=== PATIENT | male | born 1990 | race Caucasian/White ===

== ENCOUNTER 2019-10-24 11:51 | Emergency (ER) | payer OTHER, SELFPAY ==
--- NOTE | 2019-10-24 11:57 | ED.GENADULT ---
HPI - General Adult General Chief complaint: Ear Stated complaint: right ear pain/pressure Time Seen by Provider: 10/24/19 12:06 Source: patient Mode of arrival: ambulatory Limitations: no limitations History of Present Illness HPI narrative: 29-year-old male patient presents to the [facility] with complaints of decreased hearing bilateral ears. Patient states he felt like his earwax was building up so he did try using some Debrox earwax drops [id number] yesterday. Patient states he felt like it made it worse. Patient denies any pain but states he feels like something is in his right ear. Related Data Allergies Allergy/AdvReac Type Severity Reaction Status Date / Time No Known Allergies Allergy Verified 10/24/19 12:17 Review of Systems Review of Systems: Narrative: CONSTITUTIONAL: Denies fever, chills, or sweats. EYES: Denies visual changes, redness, or discharge. ENT: Denies rhinorrhea, congestion, sore throat, or otalgia. Positive fullness and decreased hearing to bilateral ears CARDIOVASCULAR: Denies chest pain, palpitations, or edema. RESPIRATORY: Denies cough or dyspnea. GASTROINTESTINAL: Denies abdominal pain, nausea, vomiting, or diarrhea. GENITOURINARY: Denies dysuria or hematuria. SKIN: Denies rash or itching. MUSCULOSKELETAL: Denies back pain, joint pain, or myalgia. NEUROLOGIC: Denies headache, numbness, or weakness. PSYCHIATRIC: Denies anxiety or depression. PMFSH Comments At the time of my signature I agree with nursing past medical history, surgical, social, and family history. There is no relevant family history pertinent to the presenting complaint. Exam Narrative: Exam Narrative: GENERAL: Well-appearing, well-nourished, and in no acute distress. HEAD: Normocephalic, atraumatic. EYES: PERRLA and EOMI. ENT: Nares clear, no rhinorrhea or epistaxis. Mucous membranes moist. Patient does have some wax buildup to bilateral ears. Once the wax was removed it did show some excoriation, redness and swelling to bilateral canals. NECK: Supple. No lymphadenopathy CHEST: Clear to auscultation. No respiratory distress. HEART: Regular rate and rhythm. No murmur heard. Normal peripheral pulses. ABDOMEN: Soft, nontender, nondistended, normal active bowel sounds. EXTREMITIES: Normal range of motion. No edema. SKIN: Warm, dry, no rash. NEURO: No focal deficits. Alert and oriented x3. Course Vital Signs Vital signs: Vital Signs Temperature 37.1 C 10/24/19 12:00 Pulse Rate 75 10/24/19 12:00 Respiratory Rate 20 10/24/19 12:00 Blood Pressure 148/88 H 10/24/19 12:00 Pulse Oximetry 99 10/24/19 12:00 Temperature 37.1 C 10/24/19 12:00 Pulse Rate 75 10/24/19 12:00 Respiratory Rate 20 10/24/19 12:00 Blood Pressure 148/88 H 10/24/19 12:00 Pulse Oximetry 99 10/24/19 12:00 Vital signs reviewed. The patient has been informed that they may have pre-hypertension or Hypertension based on a BP reading in the department. I recommend that the patient call the primary care provider listed on their discharge instructions or a physician of their choice this week to arrange follow up for further evaluation of possible pre-hypertension or Hypertension Procedures Ear Wax Removal Both Ears: Ear Wax Removal Date: 10/24/19 Ear Wax Removal Time: 12:18 Cerumenolytic Used: other (Warm water with peroxide) Results: Re-examined: cerumen removed completely TM Examination: TM(s) erythematous Ear Canal Exam: other (Erythema and swelling with excoriation) Patient Tolerated Procedure: well Complications: no problems Technique: ear canal irrigated Additional Comments: The patient had cerumen removed from the L band R ear canal with warm water and peroxide irrigation and a loop in order to visualize the TM. The TM has no perforations post procedure. There was some erythema noted to bilateral ear canals with some swelling and excoriation. There were no
[2019-10-24 12:00] VITALS: BP 148/88; PULSE 75; RESP 20; TEMP 37.1; O2SAT 99
== END 2019-10-24 12:30 | disposition home or self-care (01) ==
PROVIDERS: Emergency Provider Nurse Practitioner Family; PCP Internal Medicine
DX: H61.23 Impacted cerumen, bilateral (principal)
CPT/HCPCS: 69210; 99203; G0463

== ENCOUNTER 2019-12-13 12:51 | Emergency (ER) | payer OTHER, SELFPAY ==
[2019-12-13 13:08] VITALS: BP 151/91; PULSE 80; RESP 20; TEMP 36.7; O2SAT 98
--- NOTE | 2019-12-13 13:08 | ED.GENADULT ---
HPI - General Adult General Chief complaint: Ear Stated complaint: Clogged ear Time Seen by Provider: 12/13/19 13:08 Source: patient Mode of arrival: ambulatory Limitations: no limitations History of Present Illness HPI narrative: 29-year-old male patient presents to the [facility] with complaints of left ear pain. Patient states he was seen back in October for similar complaints and states he was diagnosed with some swimmer's ear at the time he was given ofloxacin eardrops. Patient states he started using them and started feeling some relief from the pain however he states he completed the eardrops but the pain never actually went away. Patient states he has been off the eardrops now for about 3 weeks and continues to have worsening pain. Denies any drainage. Denies any fevers. Denies any sore throat, cough or runny nose. Related Data Home Medications Medication Instructions Recorded Confirmed clonazepam 0.5 mg PO BID 12/13/19 12/13/19 Allergies Allergy/AdvReac Type Severity Reaction Status Date / Time No Known Allergies Allergy Verified 12/13/19 13:10 Review of Systems Review of Systems: Narrative: CONSTITUTIONAL: Denies fever, chills, or sweats. EYES: Denies visual changes, redness, or discharge. ENT: Denies rhinorrhea, congestion, sore throat, positive left otalgia. CARDIOVASCULAR: Denies chest pain, palpitations, or edema. RESPIRATORY: Denies cough or dyspnea. GASTROINTESTINAL: Denies abdominal pain, nausea, vomiting, or diarrhea. GENITOURINARY: Denies dysuria or hematuria. SKIN: Denies rash or itching. MUSCULOSKELETAL: Denies back pain, joint pain, or myalgia. NEUROLOGIC: Denies headache, numbness, or weakness. PSYCHIATRIC: Denies anxiety or depression. PMFSH Comments At the time of my signature I agree with nursing past medical history, surgical, social, and family history. There is no relevant family history pertinent to the presenting complaint. Exam Narrative: Exam Narrative: GENERAL: Well-appearing, well-nourished, and in no acute distress. HEAD: Normocephalic, atraumatic. EYES: PERRLA and EOMI. ENT: Nares clear, no rhinorrhea or epistaxis. Mucous membranes moist. Left tympanic membrane with no erythema. Left ear canal does appear to be swollen and has some discharge noted as well as pain with manipulation of the outer ear. The right TM is clear with no erythema or foreign bodies again and no foreign bodies in the canal. Posterior pharynx with no erythema, tonsillectomy, exudates or lesions present. NECK: Supple. No lymphadenopathy CHEST: Clear to auscultation. No respiratory distress. HEART: Regular rate and rhythm. No murmur heard. Normal peripheral pulses. ABDOMEN: Soft, nontender, nondistended, normal active bowel sounds. EXTREMITIES: Normal range of motion. No edema. SKIN: Warm, dry, no rash. NEURO: No focal deficits. Alert and oriented x3. Course Vital Signs Vital signs: Vital Signs Temperature 36.7 C 12/13/19 13:08 Pulse Rate 80 12/13/19 13:08 Respiratory Rate 20 12/13/19 13:08 Blood Pressure 151/91 H 12/13/19 13:08 Pulse Oximetry 98 12/13/19 13:08 Temperature 36.7 C 12/13/19 13:08 Pulse Rate 80 12/13/19 13:08 Respiratory Rate 20 12/13/19 13:08 Blood Pressure 151/91 H 12/13/19 13:08 Pulse Oximetry 98 12/13/19 13:08 Vital signs reviewed. The patient has been informed that they may have pre-hypertension or Hypertension based on a BP reading in the department. I recommend that the patient call the primary care provider listed on their discharge instructions or a physician of their choice this week to arrange follow up for further evaluation of possible pre-hypertension or Hypertension Medical Decision Making Differential Diagnosis Differential Diagnosis: Differential diagnosis: Otitis media, otitis externa, perforated TM, infection of the outer ear, foreign body or cerumen impaction, ruptured TM, acute mastoiditis, ligament otitis externa, dehydration, pne
== END 2019-12-13 13:18 | disposition home or self-care (01) ==
PROVIDERS: Emergency Provider Nurse Practitioner Family; PCP Physician Assistant
DX: H60.502 Unspecified acute noninfective otitis externa, left ear (principal)
CPT/HCPCS: 99213; G0463

== ENCOUNTER 2020-09-21 15:23 | Emergency (ER) | payer OTHER, SELFPAY ==
[2020-09-21 15:27] VITALS: BP 158/87; PULSE 66; RESP 14; TEMP 36.6; O2SAT 99
--- NOTE | 2020-09-21 15:56 | ED.EAR ---
HPI - Ear Problem General Chief complaint: Ear Stated complaint: ears are clogged Source: patient, RN notes reviewed and old records reviewed Mode of arrival: ambulatory Limitations: no limitations History of Present Illness HPI Narrative: 30 year old male who presents to [facility] care with complaints of his ears feeling clogged especially his left ear with some discomfort to his left ear voiced. reports hearing is decreased. Patient states that he has been experiencing flaky discharge from his ear canals for the past 5 months. Patient denies any other ill symptoms, denies any nasal discharge, cough, sore throat or any headache pain, denies any dizziness. MD Complaint: ear pain (some discomfort to left ear.) and other (ears feel clogged bilaterally) Location: bilateral Duration: constant Severity: mild Relieving factors: nothing Associated symptoms ear: decreased hearing and other (flaky skin in ear canals) Treatment prior to arrival: none Related Data Home Medications Medication Instructions Recorded Confirmed clonazepam 1 mg PO TID 09/21/20 09/21/20 paroxetine HCl 60 mg PO QAM 09/21/20 09/21/20 risperidone 2 mg PO DAILY 09/21/20 09/21/20 Allergies Allergy/AdvReac Type Severity Reaction Status Date / Time No Known Allergies Allergy Verified 09/21/20 15:38 Review of Systems Review of Systems: Narrative: CONSTITUTIONAL: Denies fever, chills, or sweats. EYES: Denies visual changes, redness, or discharge. ENT: Denies rhinorrhea, congestion, sore throat, Positive for left otalgia, ear feeling clogged with decrease in hearing. CARDIOVASCULAR: Denies chest pain, palpitations, or edema. RESPIRATORY: Denies cough or dyspnea. GASTROINTESTINAL: Denies abdominal pain, nausea, vomiting, or diarrhea. GENITOURINARY: Denies dysuria or hematuria. SKIN: Denies rash or itching. MUSCULOSKELETAL: Denies back pain, joint pain, or myalgia. NEUROLOGIC: Denies headache, numbness, or weakness. PSYCHIATRIC: Positive history of anxiety or depression. All systems reviewed & are unremarkable except as noted in HPI and below PMFSH Past Medical History Medical History (Updated 09/25/20 @ 11:55 by Mireya Mccord NP) Anxiety and depression Hypertension OCD (obsessive compulsive disorder) Surgical History Surgical History (Updated 09/25/20 @ 11:47 by Mireya Mccord NP) History of appendectomy Hx of right knee surgery Family History Family History (Updated 09/25/20 @ 11:47 by Mireya Mccord NP) Other No significant family history Social History Social History (Updated 09/25/20 @ 11:51 by Mireya Mccord NP) Smoking status: Current every day smoker Tobacco type: e-cigarettes/vaping Additional smoking assessment comments: smoked cigarettes for 12 years vapes since 2019 Alcohol intake: never Substance use: never Living arrangements: with family Gender identity (if verbalized by the patient): Male Exam Narrative: Exam Narrative: GENERAL: Well-appearing, well-nourished, obese and in no acute distress. HEAD: Normocephalic, atraumatic. EYES: PERRLA and EOMI. ENT: Nares clear, no rhinorrhea or epistaxis. Mucous membranes moist.T's impacted bilaterally with cerumen irrigation completed with TM's normal left ear canal red and excoriated and right ear canal has flaky skin noted to canal and external ear canal, hearing improved after wax removal. throat pink no lesions or exudates no tonsil enlargement. NECK: Supple.no lymphadenopathy CHEST: Clear to auscultation. No respiratory distress.SAO2 99% on room air. HEART: Regular rate and rhythm. No murmur heard. Normal peripheral pulses. ABDOMEN: Soft, nontender, nondistended, normal active bowel sounds. EXTREMITIES: Normal range of motion. No edema. SKIN: Warm, dry, no rash. NEURO: No focal deficits. Alert and oriented x3. Course Vital Signs Vital signs: Vital Signs Temperature 36.6 C 09/21/20 15:27 Pulse Rate 66 09/21/20 15:27 Respiratory Rate 14 0
== END 2020-09-21 16:08 | disposition home or self-care (01) ==
PROVIDERS: Emergency Provider Registered Nurse
DX: H61.23 Impacted cerumen, bilateral (principal); H60.313 Diffuse otitis externa, bilateral; F17.200 Nicotine dependence, unspecified, uncomplicated; F41.9 Anxiety disorder, unspecified; F32.9 Major depressive disorder, single episode, unspecified; F42.9 Obsessive-compulsive disorder, unspecified
CPT/HCPCS: 69209; 99213; A9270; G0463

== ENCOUNTER 2020-10-30 10:34 | Emergency (ER) | payer OTHER, SELFPAY ==
[2020-10-30 10:42] VITALS: BP 148/84; PULSE 77; RESP 20; TEMP 37; O2SAT 96
--- NOTE | 2020-10-30 11:37 | ED.EAR ---
HPI - Ear Problem General Chief complaint: Ear Stated complaint: Ear pain Time Seen by Provider: 10/30/20 11:30 Source: patient and RN notes reviewed Mode of arrival: ambulatory Limitations: no limitations History of Present Illness HPI Narrative: 30-year-old male presents with concern for ongoing bilateral ear pain, itchiness, occasional drainage. Reports he has had chronic problems with both ears for the past year. Reports he was most recently treated with ofloxacin 2 weeks ago after he had wax cleaned out of his ears and was told he had an outer ear infection. He reports he has had 3-4 outer ear infections within the past 12 months. He denies any hearing changes, recent swimming, rhinorrhea, nasal congestion, sore throat, fever. Reports he used his ofloxacin eardrops as directed. He reports symptoms did not improve. MD Complaint: ear pain and ear discharge Related Data Home Medications Medication Instructions Recorded Confirmed clonazepam 1 mg PO TID 09/21/20 10/30/20 paroxetine HCl 60 mg PO QAM 09/21/20 10/30/20 risperidone 2 mg PO DAILY 09/21/20 10/30/20 Allergies Allergy/AdvReac Type Severity Reaction Status Date / Time No Known Allergies Allergy Verified 10/30/20 11:12 Review of Systems Review of Systems: Narrative: CONSTITUTIONAL: Denies malaise, chills, sweats, or fever. EYES: Denies visual changes, redness, or discharge. ENT: Denies rhinorrhea, congestion, sinus pain, or sore throat. Reports bilateral ear pain, itching CARDIOVASCULAR: Denies chest pain, palpitations, or edema. RESPIRATORY: Denies cough or dyspnea. SKIN: Reports flaky skin to the ears. MUSCULOSKELETAL: Denies myalgia. NEUROLOGIC: Denies headache. All systems reviewed & are unremarkable except as noted in HPI and below PMFSH Past Medical History Medical History (Updated 10/30/20 @ 11:53 by Shawnee Sullivan NP) Anxiety and depression Hypertension OCD (obsessive compulsive disorder) Surgical History Surgical History (Updated 09/25/20 @ 11:47 by Mireya Mccord NP) History of appendectomy Hx of right knee surgery Family History Family History (Updated 09/25/20 @ 11:47 by Mireya Mccord NP) Other No significant family history Social History Social History (Updated 09/25/20 @ 11:51 by Mireya Mccord NP) Smoking status: Current every day smoker Tobacco type: e-cigarettes/vaping Additional smoking assessment comments: smoked cigarettes for 12 years vapes since 2019 Alcohol intake: never Substance use: never Gender identity (if verbalized by the patient): Male Comments At time of signature, agree with nursing past medical, surgical, social and family history. There is no relevant family history pertinent to the presenting complaint Exam Narrative: Exam Narrative: GENERAL: Well-appearing, well-nourished, and in no acute distress. HEAD: Normocephalic, atraumatic. EYES: PERRLA, conjunctivae clear, and EOMI. ENT: Nares clear. Mucous membranes moist. TM pearly herrera with sharp light reflex bilaterally; no tragal tenderness; external ear skin flaky without redness, copious white to yellow purulent drainage noted in bilateral ear canals. Oropharynx without erythema or lesions. Tonsils not enlarged and without exudate. NECK: Supple. No lymphadenopathy. CHEST: No respiratory distress. Speaks in full sentences. HEART: Regular rate and rhythm. SKIN: Warm, dry, no rash. NEURO: Alert and oriented x3. PSYCH: Normal mood and affect Course Course Emergency Course: Discussed with patient need to follow-up with ear nose and throat doctor due to recurring ear infections. Patient is agreeable. Patient is aware of diagnosis, understands and agrees to treatment plan. Anticipatory guidance given. Patient agrees to follow-up as directed and is aware of reasons to seek care at the emergency department. Portions of this record may have been created with voice recognition software Vital Signs Vital signs: Vital Sig
== END 2020-10-30 12:05 | disposition home or self-care (01) ==
PROVIDERS: Emergency Provider Nurse Practitioner
DX: B36.9 Superficial mycosis, unspecified (principal); H62.43 Otitis externa in other diseases classified elsewhere, bilateral; F17.200 Nicotine dependence, unspecified, uncomplicated; I10 Essential (primary) hypertension; F41.9 Anxiety disorder, unspecified; F32.9 Major depressive disorder, single episode, unspecified; F42.9 Obsessive-compulsive disorder, unspecified
CPT/HCPCS: 87070; 87075; 87076; 87102; 87205; 87206; 99213; G0463

== ENCOUNTER 2021-02-14 19:35 | Emergency (ER) | payer OTHER, SELFPAY ==
[2021-02-14 19:44] VITALS: BP 139/89; PULSE 85; RESP 18; TEMP 36.1; O2SAT 98
--- NOTE | 2021-02-14 20:13 | ED.GENADULT ---
HPI - General Adult General Chief complaint: Ear Stated complaint: Ear Pain Source: patient and RN notes reviewed Mode of arrival: ambulatory Limitations: no limitations History of Present Illness HPI narrative: Progress at 30-year-old male [facility] Patient states he has left ear pain. Patient states he recently started on Geodon 2 days ago was unsure if that anything to do with this onset of pain. Patient denies any fever chills or other symptoms. MD complaint: ear pain Related Data Home Medications Medication Instructions Recorded Confirmed clonazepam 1 mg PO TID 09/21/20 02/14/21 paroxetine HCl 20 mg PO DAILY 09/21/20 02/14/21 lisinopril-hydrochlorothiazide 1 tablet PO DAILY 02/14/21 02/14/21 paroxetine HCl 40 mg PO DAILY 02/14/21 02/14/21 risperidone 1 mg PO TID 02/14/21 02/14/21 sumatriptan succinate 100 mg PO DAILY PRN 02/14/21 02/14/21 topiramate 25 mg PO DAILY PRN 02/14/21 02/14/21 ziprasidone HCl 20 mg PO BID 02/14/21 02/14/21 Allergies Allergy/AdvReac Type Severity Reaction Status Date / Time No Known Allergies Allergy Verified 02/14/21 20:01 Review of Systems Review of Systems: CONSTITUTIONAL: Denies body aches, fever, chills, or sweats. EYES: Denies visual changes, redness, or discharge. ENT: Denies rhinorrhea, congestion, sore throat, , + left otalgia. CARDIOVASCULAR: Denies chest pain, palpitations, or edema. RESPIRATORY: Denies cough or dyspnea. GASTROINTESTINAL: Denies abdominal pain, nausea, vomiting, or diarrhea. GENITOURINARY: Denies dysuria or hematuria. SKIN: Denies rash, itching, or wounds. + left facial swelling MUSCULOSKELETAL: Denies back pain, joint pain, or myalgia. NEUROLOGIC: Denies headache, numbness, tingling, or weakness. PSYCH: Denies depression or anxiety. All systems reviewed & are unremarkable except as noted in HPI and below PMFSH Past Medical History Medical History Anxiety and depression Hypertension OCD (obsessive compulsive disorder) Surgical History Surgical History History of appendectomy Hx of right knee surgery Family History Family History Other No significant family history Social History Social History Smoking status: Current every day smoker Tobacco type: e-cigarettes/vaping Additional smoking assessment comments: smoked cigarettes for 12 years vapes since 2019 Alcohol intake: never Substance use: never Gender identity (if verbalized by the patient): Male Comments At time of signature, I have reviewed and agree with nursing past medical, surgical, social and family history unless otherwise noted. Please see nursing chart for further information. There is no relevant family history pertinent to the presenting complaint Exam Narrative: GENERAL: Well-appearing, well-nourished, and in no acute distress. HEAD: Normocephalic, atraumatic. EYES: EOMI. No redness or drainage. Conjunctivae normal. ENT: Mucous membranes pink and moist. Nares clear. No rhinorrhea. Left TM bulging, fluid filled, erythemic. Throat normal. Uvula midline. Left tooth #15 cracked NECK: Normal AROM. Supple. No lymphadenopathy. CHEST: No respiratory distress. Clear to auscultation. HEART: Regular rate and rhythm. No murmur appreciated. Normal peripheral pulses. ABDOMEN: Soft, nontender, nondistended, normal active bowel sounds. MUSCULOSKELETAL: No bony tenderness. EXTREMITIES: Normal range of motion. No edema. SKIN: Warm, dry, no rash. Capillary refill normal. Normal skin turgor. Left facial maxillary edema NEURO: No focal deficits. Alert and oriented x3. Gait steady. PSYCH: Normal affect. No signs of depression or anxiety. Course Vital Signs Vital signs: Vital Signs Temperature 36.1 C L 02/14/21 19:44 P
== END 2021-02-14 20:20 | disposition home or self-care (01) ==
PROVIDERS: Emergency Provider Nurse Practitioner Family
DX: K04.7 Periapical abscess without sinus (principal); F17.200 Nicotine dependence, unspecified, uncomplicated; I10 Essential (primary) hypertension; F41.9 Anxiety disorder, unspecified; F32.A Depression, unspecified; F42.9 Obsessive-compulsive disorder, unspecified
CPT/HCPCS: 99213; G0463

== ENCOUNTER 2021-03-01 14:34 | Emergency (ER) | payer OTHER, SELFPAY ==
[2021-03-01 14:41] VITALS: BP 183/85; PULSE 75; RESP 18; TEMP 36.4; O2SAT 98
--- NOTE | 2021-03-01 14:47 | ED.EAR ---
HPI - Ear Problem General Chief complaint: Ear Stated complaint: Ear Pain Time Seen by Provider: 03/01/21 14:47 Source: patient and RN notes reviewed Mode of arrival: ambulatory Limitations: no limitations History of Present Illness HPI Narrative: 30-year-old male presents with concern for left ear pain. Reports he was seen in this clinic on the seventh and was prescribed Augmentin for a possible tooth abscess. He reports he was told he could have a dental abscess and was given Augmentin. He denies any dental pain at that time or at this time. He reports stinging feeling, popping sounds in his ear. Patient has history of treatment resistant otitis externa. He denies any rhinorrhea, nasal congestion, sore throat, cough. MD Complaint: ear pain Related Data Home Medications Medication Instructions Recorded Confirmed clonazepam 1 mg PO TID 09/21/20 03/01/21 paroxetine HCl 20 mg PO DAILY 09/21/20 03/01/21 lisinopril-hydrochlorothiazide 1 tablet PO DAILY 02/14/21 03/01/21 paroxetine HCl 40 mg PO DAILY 02/14/21 03/01/21 risperidone 1 mg PO TID 02/14/21 03/01/21 sumatriptan succinate 100 mg PO DAILY PRN 02/14/21 03/01/21 topiramate 25 mg PO DAILY PRN 02/14/21 03/01/21 ziprasidone HCl 20 mg PO BID 02/14/21 03/01/21 Allergies Allergy/AdvReac Type Severity Reaction Status Date / Time No Known Allergies Allergy Verified 02/14/21 20:01 Review of Systems Review of Systems: CONSTITUTIONAL: Reports malaise. Denies chills, sweats, or fever. EYES: Denies visual changes, redness, or discharge. ENT: Denies rhinorrhea, congestion, sinus pain, dental pain, or sore throat. Reports ear pain CARDIOVASCULAR: Denies chest pain, palpitations, or edema. RESPIRATORY: Denies cough or dyspnea. SKIN: Denies rash or itching. MUSCULOSKELETAL: Denies myalgia. NEUROLOGIC: Denies numbness, weakness, or headache. PSYCHIATRIC: Denies anxiety or depression. All systems reviewed & are unremarkable except as noted in HPI and below PMFSH Past Medical History Medical History Anxiety and depression Hypertension OCD (obsessive compulsive disorder) Surgical History Surgical History History of appendectomy Hx of right knee surgery Family History Family History Other No significant family history Social History Social History Smoking status: Current every day smoker Tobacco type: e-cigarettes/vaping Additional smoking assessment comments: smoked cigarettes for 12 years vapes since 2019 Alcohol intake: never Substance use: never Gender identity (if verbalized by the patient): Male Comments At time of signature, agree with nursing past medical, surgical, social and family history. There is no relevant family history pertinent to the presenting complaint Exam Narrative: GENERAL: Well-appearing, well-nourished, and in no acute distress. HEAD: Normocephalic, atraumatic. EYES: PERRLA, sclera clear, and EOMI. No nystagmus. ENT: Nares clear. Mucous membranes moist. TM pearly white with sharp light reflex bilaterally; left tragal tenderness with large amount of white discharge in the auditory canals bilaterally. NECK: Supple. No lymphadenopathy. CHEST: No respiratory distress. Speaks in full sentences. HEART: Regular rate and rhythm. SKIN: Warm, dry, no visible rash. NEURO: Alert and oriented x3. PSYCH: Normal mood and affect Course Course Emergency Course: Patient instructed on this visit as he was with his visit on 10/30/20 for repeated otitis externa to seek care at an [facility]. Patient is aware of diagnosis, understands and agrees to treatment plan. Anticipatory guidance given. Patient agrees to follow-up as directed and is aware of reasons to seek care at the emergency department. Portions
== END 2021-03-01 15:00 | disposition home or self-care (01) ==
PROVIDERS: Emergency Provider Nurse Practitioner
DX: H60.501 Unspecified acute noninfective otitis externa, right ear (principal); F17.290 Nicotine dependence, other tobacco product, uncomplicated; I10 Essential (primary) hypertension; F41.9 Anxiety disorder, unspecified; F32.A Depression, unspecified; F42.9 Obsessive-compulsive disorder, unspecified
CPT/HCPCS: 99213; G0463

== ENCOUNTER 2024-03-05 08:58 | Emergency (ER) | payer OTHER, SELFPAY ==
[2024-03-05 09:09] VITALS: BP 158/94; PULSE 66; RESP 20; TEMP 36.1; O2SAT 100
--- NOTE | 2024-03-05 09:21 | ED_ITS ---
HPI - Eye Problem General Chief complaint: Eye Problems Stated complaint: Eye Problem Time Seen by Provider: 03/05/24 09:21 Source: patient, family, RN notes reviewed and old records reviewed Mode of arrival: ambulatory Limitations: no limitations History of Present Illness HPI Narrative: 34 year old male accompanied by mother presents to express care with complaints of bilateral eye irritation and redness with burning sensation to his eyes for one week duration. Patient reports that he has been taking some Tylenol and also has used fresh eye drops and Zyrtec. Patient reports no matting or mucous drainage from his eyes, states eyes are watery. Patient reports that his left eye is worse with some discomfort to eye, no change in vision. Patient reports that they have been watching his sister's cat for 3 weeks. Patient reports history of cat allergy states that cat is upstairs. Visual acuity left 20/25-2, right 20/40 without correction MD chief complaint: eye redness and other (burning sensation) Onset (ago): week(s) (1) Onset description: gradual Duration: constant Severity scale (1-10): 9 Treatments Prior to Arrival: OTC eye drops and other (Tylenol) Related Data Home Medications Medication Instructions Recorded Confirmed clonazepam 1 mg tablet 1 mg PO BID 09/21/20 03/05/24 paroxetine HCl 20 mg tablet 20 mg PO DAILY 09/21/20 03/05/24 paroxetine HCl 40 mg tablet 40 mg PO DAILY 02/14/21 03/05/24 atogepant 30 mg tablet (Qulipta) 30 mg PO DAILY 03/05/24 03/05/24 furosemide 20 mg tablet 20 mg PO DAILY 03/05/24 03/05/24 potassium chloride 10 mEq 10 meq PO DAILY 03/05/24 03/05/24 tablet,extended release propranolol 40 mg tablet 40 mg PO TID 03/05/24 03/05/24 rizatriptan 5 mg disintegrating 5 mg translingual DAILY PRN 03/05/24 03/05/24 tablet Migraine Headache sumatriptan succinate 25 mg tablet 25 mg PO DAILY PRN Migraine 03/05/24 03/05/24 Headache trazodone 100 mg tablet 150 mg PO QPM 03/05/24 03/05/24 ziprasidone HCl 60 mg capsule 60 mg PO DAILY 03/05/24 03/05/24 Allergies Allergy/AdvReac Type Severity Reaction Status Date / Time No Known Allergies Allergy Verified 03/05/24 09:14 Review of Systems Review of Systems: CONSTITUTIONAL: Denies fever, chills, or sweats. EYES: Denies visual changes. Reports redness,, irritation, burning sensation to his eyes ENT: Reports some rhinorrhea, denies congestion, sore throat, or otalgia. CARDIOVASCULAR: Denies chest pain, palpitations, or edema. RESPIRATORY: Denies cough or dyspnea. SKIN: Denies rash or itching. NEUROLOGIC: Denies headache All systems reviewed & are unremarkable except as noted in HPI and below PMFSH Past Medical History Medical History Anxiety and depression Congenital absence of one kidney Hx of migraines Hypertension OCD (obsessive compulsive disorder) Surgical History Surgical History History of appendectomy Hx of right knee surgery Family History Family History Other No significant family history Social History Social History Smoking status: Current every day smoker Tobacco type: e-cigarettes/vaping Additional smoking assessment comments: smoked cigarettes for 12 years vapes since 2019 Alcohol intake: never Substance use: never Living arrangements: with family Gender identity (if verbalized by the patient): Male Comments At time of signature, agree with nursing past medical, surgical, social and family history. There is no relevant family history pertinent to the presenting complaint Exam Narrative: GENERAL: Well-appearing, well-nourished,morbidly obese, and in no acute distress. HEAD: Normocephalic, atraumatic. EYES: PERRLA and EOMI. Upper and lower eyelids unremarkable. No periorbital cellulitis noted. Sclera and conjunctivae injected bilateral eyes with watery drainage from eyes, reports no visual changes or mucous discharge ENT: Nares clear, clear rhinorrhea no epistaxis. Mucous membranes moist.TM's normal throat pink eith no swelling or any difficulty swallowing NECK: Supple.no lymphadenopathy CHEST: Clear to auscultation. No respiratory distress.SAO2 100% on room air, no acute cough. HEART: Regular rate and rhythm. No murmur heard. Normal peripheral pulses. SKIN: Warm, dry, no rash. NEURO: No focal deficits. Alert and oriented x3. Course Course Emergency Course: Patient is aware of diagnosis, understands and agrees to treatment plan. Anticipatory guidance given. Patient agrees to follow-up as directed and is aware of reasons to seek care at the emergency department. Portions of this record may have been created with voice recognition software Level of Care: Express Care Visit Vital Signs Vital signs: Vital Signs Temperature 36.1 C L 03/05/24 09:09 Pulse Rate 66 03/05/24 09:09 Respiratory Rate 20 03/05/24 09:09 Blood Pressure 158/94 H 03/05/24 09:09 Pulse Oximetry 100 03/05/24 09:09 Oxygen Delivery Room Air 03/05/24 09:09 Temperature 36.1 C L 03/05/24 09:09 Pulse Rate 66 03/05/24 09:09 Respiratory Rate 20 03/05/24 09:09 Blood Pressure 158/94 H 03/05/24 09:09 Pulse Oximetry 100 03/05/24 09:09 Oxygen Delivery Room Air 03/05/24 09:09 Reviewed MDM - Eye Problem MDM Narrative Medical decision making narrative: Consideration of the following conditions may be warranted for the presenting problem, they are not final diagnoses: Bacterial conjunctivitis, allergic conjunctivitis, viral conjunctivitis, foreign body, blepharitis, chalazion, hordeolum, corneal abrasion.? Exam findings show no acute concerns or changes; patient is non-toxic appearing and is in no distress.? Patient is appropriate for outpatient treatment and follow-up. Differential Diagnosis Differential diagnosis: Likely conjunctivitis, subconjunctival hemorrhage and other (allergic conjunctivitis, burning sensation to eyes) Medical Records Attestation: I reviewed the patient's medical records. Critical Care Time Critical Care Time Critical Care Time: No Discharge Plan Discharge Clinical Impression: Conjunctivitis Patient Disposition: Home, Self-Care Condition: Stable Instructions: How to Use Eye Drops (ED), Conjunctivitis (ED) Additional Instructions: Cold compresses to the eyes for comfort May need warm compresses to remove debris in the morning When cleaning the eyes used a washcloth in one direction then change washcloths or use a cotton ball in one direction and then his cotton balls Eyedrops as directed--may be more soothing if left in the refrigerator Do not share medicine--do not touch the eye with the medicine Tylenol or ibuprofen for pain Avoid screen time--television, computer, tablet or phone. Also no reading or driving Follow-up with PCP or superintendent maintenance as directed in 48 hours if no improvement If your symptoms persist, change or worsen significantly before you can contact your personal physician then please, without delay, go to the emergency department for further evaluation. Follow-up with PCP in 7-10 days or sooner if needed Follow up with PCP soon in regards to your blood pressure which is elevated above threshold for referral. Blood pressure above 120/80 may indicate pre- hypertension.158/94 Pepcid 20 mg daily for 10 days Zyrtec, Claritin or Marina daily Prescriptions: New ofloxacin 0.3 % drops See Rx Instructions .ROUTE .COMPLEX Qty: 10 0RF Rx Instructions: put 1-2 drps into affected eye(s) every 2-4 h x 2 days, then 1-2 drps 4 times/day days 3-7 famotidine [Pepcid] 20 mg tablet 20 mg PO DAILY Qty: 10 0RF No Action paroxetine HCl 40 mg tablet 40 mg PO DAILY clonazepam 1 mg Tablet 1 mg PO BID paroxetine HCl 20 mg Tablet 20 mg PO DAILY propranolol 40 mg tablet 40 mg PO TID potassium chloride 10 mEq tablet extended release 10 meq PO DAILY furosemide 20 mg tablet 20 mg PO DAILY rizatriptan 5 mg tablet,disintegrating 5 mg translingual DAILY PRN (Reason: Migraine Headache) sumatriptan succinate 25 mg tablet 25 mg PO DAILY PRN (Reason: Migraine Headache) trazodone 100 mg tablet 150 mg PO QPM Qulipta 30 mg tablet 30 mg PO DAILY ziprasidone HCl 60 mg capsule 60 mg PO DAILY Follow-up/Referrals: Jim,Devonte Castañeda MD [Primary Care Provider] - Time of Disposition: 09:35 Quality [place] Coma Scale Eyes: Open Verbal: Oriented and Alert Motor: Follows Commands [place] Coma Total Score: 15
== END 2024-03-05 09:42 | disposition home or self-care (01) ==
PROVIDERS: Emergency Provider Registered Nurse; PCP Internal Medicine
DX: H10.9 Unspecified conjunctivitis (principal); F17.290 Nicotine dependence, other tobacco product, uncomplicated; I10 Essential (primary) hypertension; F41.9 Anxiety disorder, unspecified; F32.A Depression, unspecified; Q63.9 Congenital malformation of kidney, unspecified
CPT/HCPCS: 99213; G0463

== ENCOUNTER 2024-04-20 10:12 | Emergency (ER) | payer OTHER, SELFPAY ==
--- NOTE | ~2024-04-20 | XR_ITS ---
EXAMINATION: XR hand RT min 3V DATE: 04/20/2024 10:38 INDICATION: Laceration at the third proximal interphalangeal joint after punching a mirror. TECHNIQUE: Posteroanterior, oblique and lateral views of the right hand were obtained. COMPARISON: None. FINDINGS: Chronic-appearing fracture deformities at the neck of the right fourth and fifth metacarpals which arredondo ve healed with mild pulmonary angulation. Alignment is otherwise normal. No acute fractures identifie d. Joint spaces are normal. Soft tissue swelling at the base of the digits. No radiopaque foreign bod ies. IMPRESSION: 1. No acute osseous abnormality or radiopaque foreign bodies. 2. Old healed fracture deformities at the necks of the left fourth and fifth metacarpals. Reviewed, dictated and finalized at location A. [facility] IMPRESSION: 1. No acute osseous abnormality or radiopaque foreign bodies. 2. Old healed fracture deformities at the necks of the left fourth and fifth me tacarpals.
[2024-04-20 10:16] VITALS: BP 150/82; PULSE 90; RESP 20; TEMP 36.6; O2SAT 98
--- NOTE | 2024-04-20 10:26 | ED_ITS ---
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 States he was mad. Says tetanus has been in the last 5 years. Reports full ROM to the digit. Related Data Home Medications ?Medication ?Instructions ?Recorded ?Confirmed ?Last Taken ?Type clonazepam 1 mg tablet 1 mg PO BID 09/21/20 04/20/24 Unknown History paroxetine HCl 20 mg tablet 20 mg PO DAILY 09/21/20 04/20/24 Unknown History paroxetine HCl 40 mg tablet 40 mg PO DAILY 02/14/21 04/20/24 Unknown History atogepant 30 mg tablet (Qulipta) 30 mg PO DAILY 03/05/24 04/20/24 Unknown History furosemide 20 mg tablet 20 mg PO DAILY 03/05/24 04/20/24 Unknown History potassium chloride 10 mEq 10 meq PO DAILY 03/05/24 04/20/24 Unknown History tablet,extended release propranolol 40 mg tablet 40 mg PO TID 03/05/24 04/20/24 Unknown History trazodone 100 mg tablet 150 mg PO QPM 03/05/24 04/20/24 Unknown History ziprasidone HCl 60 mg capsule 60 mg PO DAILY 03/05/24 04/20/24 Unknown History Allergies Allergy/AdvReac Type Severity Reaction Status Date / Time No Known Allergies Allergy Verified 03/05/24 09:14 Review of Systems 2 Review of Systems: CONSTITUTIONAL: Denies body aches, fever, chills, or sweats. CARDIOVASCULAR: Denies chest pain, palpitations, or edema. RESPIRATORY: Denies cough or dyspnea. SKIN: per HPI MUSCULOSKELETAL: Denies back pain, joint pain, or myalgia. NEUROLOGIC: Denies headache, numbness, tingling, or weakness. [facility] Past Medical History Medical History Congenital absence of one kidney Hx of migraines OCD (obsessive compulsive disorder) Anxiety and depression Hypertension Surgical History Surgical History Hx of right knee surgery History of appendectomy Family History Family History Other No significant family history Social History Social History Smoking status: Current every day smoker Tobacco type: e-cigarettes/vaping Additional smoking assessment comments: smoked cigarettes for 12 years vapes since 2019 Alcohol intake: never Substance use: never Living arrangements: with family Gender identity (if verbalized by the patient): Male Comments At time of signature, I have reviewed and agree with nursing past medical, surgical, social and family history unless otherwise noted. Please see nursing chart for further information. There is no relevant family history pertinent to the presenting complaint Exam 2 Narrative: GENERAL: Well-appearing ENT: Mucous membranes moist. Oropharynx without edema, erythema or lesions. CHEST: Clear to auscultation. HEART: Regular rate and rhythm. SKIN: Warm, dry. Right 3rd digit PIP, dorsal surface, with gaping irregular laceration approx 2cm. CMS intact. Strength intact to digit with flexion and extension. NEURO: Alert and oriented x3. Extrem: Hand/finger images: 1. right 3rd digit lac Course Course Emergency Course: Patient is aware of diagnosis, understands and agrees to treatment plan. Anticipatory guidance given. Patient agrees to follow-up as directed and is aware of reasons to seek care at the emergency department. Portions of this record may have been created with voice recognition software Level of Care: Express Care Visit Vital Signs Vital signs: Vital Signs Temperature 98 F 04/20/24 10:16 Pulse Rate 90 04/20/24 10:16 Respiratory Rate 20 04/20/24 10:16 Blood Pressure 150/82 H 04/20/24 10:16 Pulse Oximetry 98 04/20/24 10:16 Oxygen Delivery Room Air 04/20/24 10:16 Temperature 98 F 04/20/24 10:16 Pulse Rate 90 04/20/24 10:16 Respiratory Rate 20 04/20/24 10:16 Blood Pressure 150/82 H 04/20/24 10:16 Pulse Oximetry 98 04/20/24 10:16 Oxygen Delivery Room Air 04/20/24 10:16 Reviewed Procedures Laceration right 3rd digit: Date: 04/20/24 Size (cm): 2 Description: irregular and clean Depth: simple, single layer Local Anesthetic: lidocaine 1% Amount of anesthesia used (mL): 5 Pre-repair: irrigated extensively ====== Skin Level ====== Skin layer closed with: nylon Size (cm): 5-0 Number of sutures: 8 Technique: simple, interrupted ====== Subcutaneous Layer ====== ====== Muscle Layer ====== ====== Tendon Layer ====== Dressing: The procedure and its alternatives were reviewed with patient. Risks were reviewed with patient including infection and damage to nearby structures. Patient provided verbal informed consent. The patient was positioned appropriately. Sterile drapes applied to maintain sterile field. Wound was explored for abnormalities including infection and foreign bodies. Sutures placed with wound edges approximated. Patient tolerated well, no complications. Dressing applied per RN. MDM - Wound/Laceration MDM Narrative Medical decision making narrative: Discussed physical exam findings. Xray neg for FB. Tolerated sutre placement, metal finger splint applied. Advised supportive measures and signs/symptoms to go to the ER. Pt is appropriate for outpt treatment and f/u. Differential Diagnosis Differential diagnosis: Likely laceration, abrasion and avulsion of skin Imaging Data Radiologist's impression: Patient: Rene Shaw II : 1990 MR#: [id number] Age: 34 Acct:[id number] Loc: [facility] ADM Date: 04/20/24Attending Dr: Ordering Physician: Milagros Harvey APRN Date of Service: 04/20/24 Procedure(s): XR hand RT min 3V Accession Number(s): [id number] cc: Milagros Harvey APRN; JIM,HOLLY Castañeda M.D.~ EXAMINATION: XR hand RT min 3V DATE: 04/20/2024 10:38 INDICATION: Laceration at the third proximal interphalangeal joint after punching a mirror. TECHNIQUE: Posteroanterior, oblique and lateral views of the right hand were obtained. COMPARISON: None. FINDINGS: Chronic-appearing fracture deformities at the neck of the right fourth and fifth metacarpals which have healed with mild pulmonary angulation. Alignment is otherwise normal. No acute fractures identified. Joint spaces are normal. Soft tissue swelling at the base of the digits. No radiopaque foreign bodies. IMPRESSION: 1. No acute osseous abnormality or radiopaque foreign bodies. 2. Old healed fracture deformities at the necks of the left fourth and fifth metacarpals. Discharge Plan Discharge Clinical Impression: Finger laceration Qualifiers: Encounter type: initial encounter Finger: middle finger Damage to nail status: without damage Foreign body presence: without foreign body Laterality: right Q ualified Code(s): S61.212A - Laceration without foreign body of right middle finger without damage to nail, initial encounter Patient Disposition: Home, Self-Care Condition: Stable Instructions: Antibiotic Form, Finger Laceration (ED) Additional Instructions: Your sutures need to be removed in 7-10 days. You can return to clinic. Wear the dressing that has been applied for the first 24 hours to allow a scab to start forming. After this, you may remove and wash as normal with soap and water. Do NOT wash with peroxide or alcohol. Take tylenol or ibuprofen at home for pain keep the splint in place to keep your finger straight, only remove it for bathing Follow up with your PCP, call to schedule an appointment go to the ER with any signs of infection such as redness, swelling, increased pain, or drainage. Patient Language: Malay Prescriptions: New cephalexin 500 mg capsule 500 mg PO Q8H 5 Days Qty: 15 0RF No Action paroxetine HCl 40 mg tablet 40 mg PO DAILY clonazepam 1 mg Tablet 1 mg PO BID paroxetine HCl 20 mg Tablet 20 mg PO DAILY propranolol 40 mg tablet 40 mg PO TID potassium chloride 10 mEq tablet extended release 10 meq PO DAILY furosemide 20 mg tablet 20 mg PO DAILY trazodone 100 mg tablet 150 mg PO QPM Qulipta 30 mg tablet 30 mg PO DAILY ziprasidone HCl 60 mg capsule 60 mg PO DAILY famotidine [Pepcid] 20 mg tablet 20 mg PO DAILY Qty: 10 0RF Follow-up/Referrals: Jim,Holly Castañeda MD [Primary Care Provider] - Time of Disposition: 11:55
== END 2024-04-20 12:08 | disposition home or self-care (01) ==
PROVIDERS: Emergency Provider Nurse Practitioner Family; PCP Internal Medicine
DX: S61.212A Laceration without foreign body of right middle finger without damage to nail, initial encounter (principal); W25.XXXA Contact with sharp glass, initial encounter; F17.290 Nicotine dependence, other tobacco product, uncomplicated; I10 Essential (primary) hypertension; F41.9 Anxiety disorder, unspecified; F32.A Depression, unspecified; F42.9 Obsessive-compulsive disorder, unspecified
CPT/HCPCS: 12001; 73130; 99213; G0463; J2003